=== PATIENT | female | born 1975 | race Caucasian/White ===

== ENCOUNTER 2023-07-06 15:03 | Emergency (ER) | payer SELFPAY ==
[~2023-07-06] VITALS: Ht 170.2 cm; Wt 158.9 kg
[~2023-07-06 15:03] MED LIST: ALBU6.7H14 INH; CARI350T PO; CLOT15CR9 TOP; HYDR-4383 PO; NORCO10T PO; PER10325T PO
[2023-07-06 15:29] VITALS: BP 183/102; PULSE 87; TEMP 96.4; O2SAT 94
[2023-07-06 15:37] LABS: BASOPHILS # (AUTO) 0.1 X10'3 (0-0.2); EOSINOPHILS # (AUTO) 0.2 X10'3 (0-0.9); EOSINOPHILS % (AUTO) 2.1 % (0-6); HEMATOCRIT 39.1 % (35.0-45.0); HEMOGLOBIN 13.5 g/dl (12.0-16.0); LYMPHOCYTES # (AUTO) 2.5 X10'3 (1.1-4.8); LYMPHOCYTES % (AUTO) 23.9 % (21-51); MEAN CORPUSCULAR HEMOGLOBIN 29.6 PG (27.0-31.0); MEAN CORPUSCULAR HGB CONC 34.5 g/dL (33.0-36.5); MEAN CORPUSCULAR VOLUME 85.9 FL (78-98); MEAN PLATELET VOLUME 7.2 FL (7.4-10.4); MONOCYTES # (AUTO) 0.7 X10'3 (0-0.9); MONOCYTES % (AUTO) 6.6 % (2-12); NEUTROPHILS % (AUTO) 66.4 % (42-75); PLATELET COUNT 262 X10'3 (140-440); RED BLOOD COUNT 4.55 X10'6 (4.20-5.60); RED CELL DISTRIBUTION WIDTH 13.6 % (11.5-14.5); WHITE BLOOD COUNT 10.5 X10'3 (4.5-11.0)
[2023-07-06 15:44] LABS: ALANINE AMINOTRANSFERASE 30 U/L (12-78); ALBUMIN 3.2 G/DL (3.4-5.0); ALBUMIN/GLOBULIN RATIO 0.8 (1.1-1.5); ALKALINE PHOSPHATASE 85 IU/L (46-116); ANION GAP 5 (8-16); ASPARTATE AMINO TRANSFERASE 23 U/L (10-37); BILIRUBIN,TOTAL 0.5 MG/DL (0.1-1.0); BLOOD UREA NITROGEN 12 MG/DL (7-18); BUN/CREATININE RATIO 14.1 (10.0-20.0); CALCIUM 9.2 MG/DL (8.5-10.1); CHLORIDE 101 MMOL/L (99-107); CREATININE 0.85 MG/DL (0.40-0.90); GLUCOSE 253 MG/DL (70-104); POTASSIUM 4.2 MMOL/L (3.5-5.1); PRO BRAIN NATRIURETIC PEPTIDE 58 PG/ML (0-125); SODIUM 135 MMOL/L (135-145); TOTAL CARBON DIOXIDE 28.6 MMOL/L (24-32); TOTAL PROTEIN 7.3 G/DL (6.4-8.2); eCRCL 80 ML/MIN; eGFR 72 ML/MIN
[2023-07-06 16:17] VITALS: RESP 16
[2023-07-06] MEDS ORDERED: BENZ-38 PO (18:54)
== END 2023-07-06 19:09 | disposition home or self-care (01) ==
LOC: ER 15:03
DX: J20.9 Acute bronchitis, unspecified (principal); Z20.822 Contact with and (suspected) exposure to COVID-19; I10 Essential (primary) hypertension; J45.909 Unspecified asthma, uncomplicated; G89.29 Other chronic pain; M54.9 Dorsalgia, unspecified; Z88.2 Allergy status to sulfonamides; Z88.5 Allergy status to narcotic agent; Z79.899 Other long term (current) drug therapy
CPT/HCPCS: 36415; 71045; 80053; 83880; 84484; 85025; 87502; 87503; 87811; 93005; 99285

== ENCOUNTER 2023-11-03 17:58 | Inpatient (IN) | payer BC ==
[~2023-11-03] VITALS: Ht 170.2 cm; Wt 153.7 kg
[2023-11-03 19:19] LABS: BASOPHILS # (AUTO) 0.1 X10'3 (0-0.2); EOSINOPHILS # (AUTO) 0.1 X10'3 (0-0.9); EOSINOPHILS % (AUTO) 0.6 % (0-6); HEMATOCRIT 44.7 % (35.0-45.0); LYMPHOCYTES # (AUTO) 2.3 X10'3 (1.1-4.8); MEAN CORPUSCULAR HEMOGLOBIN 28.6 PG (27.0-31.0); MEAN CORPUSCULAR HGB CONC 33.5 g/dL (33.0-36.5); MEAN CORPUSCULAR VOLUME 85.4 FL (78-98); MEAN PLATELET VOLUME 7.2 FL (7.4-10.4); MONOCYTES # (AUTO) 0.8 X10'3 (0-0.9); MONOCYTES % (AUTO) 6.7 % (2-12); NEUTROPHILS # (AUTO) 9.3 X10'3 (1.8-7.7); NEUTROPHILS % (AUTO) 73.7 % (42-75); PLATELET COUNT 390 X10'3 (140-440); RED BLOOD COUNT 5.23 X10'6 (4.20-5.60); RED CELL DISTRIBUTION WIDTH 14.3 % (11.5-14.5); WHITE BLOOD COUNT 12.6 X10'3 (4.5-11.0)
[2023-11-03 19:33] LABS: ALANINE AMINOTRANSFERASE 102 U/L (12-78); ALBUMIN 3.7 G/DL (3.4-5.0); ALBUMIN/GLOBULIN RATIO 0.9 (1.1-1.5); ALKALINE PHOSPHATASE 89 IU/L (46-116); ANION GAP 11 (8-16); ASPARTATE AMINO TRANSFERASE 107 U/L (10-37); BLOOD UREA NITROGEN 13 MG/DL (7-18); BUN/CREATININE RATIO 12.4 (10.0-20.0); CALCIUM 9.1 MG/DL (8.5-10.1); CHLORIDE 100 MMOL/L (99-107); CREATININE 1.05 MG/DL (0.40-0.90); GLUCOSE 304 MG/DL (70-104); LIPASE 63 U/L (16-77); POTASSIUM 4.6 MMOL/L (3.5-5.1); SODIUM 140 MMOL/L (135-145); TOTAL PROTEIN 7.9 G/DL (6.4-8.2); eCRCL 64 ML/MIN; eGFR 56 ML/MIN
[2023-11-03] MEDS ORDERED: ketorolac tromethamine 15mg/ml inj. IM ONE (19:40)
[2023-11-03 19:56] LABS: BILIRUBIN,TOTAL 1.8 MG/DL (0.1-1.0)
[2023-11-03] MEDS: HYDROcodone/acetaminophen 5mg/325mg tablet PO ONE (20:00)
[2023-11-03] MEDS: ketorolac trometh inj. 60 MG/2 ML VIAL IM ONE (20:01)
[2023-11-03] MEDS: ondansetron/PF 4mg/2ml inj IV ONE ×2 (20:01→22:07)
[2023-11-03 21:35] LABS: BILIRUBIN,URINE MODERATE (Neg); CLARITY,URINE CLOUDY (Clear); COLOR,URINE YELLOW (Yellow); GLUCOSE, URINE 500 mg/dl (Neg); KETONES,URINE TRACE mg/dl (Neg); LEUKOCYTE ESTERASE ,URINE NEGATIVE (Neg); NITRITES, URINE NEGATIVE (Neg); OCCULT BLOOD,URINE NEGATIVE (Neg); PROTEIN,URINE 30 mg/dl (Neg)
[2023-11-03 21:37] LABS: URINE HCG NEGATIVE (NEG)
[2023-11-03 21:44] LABS: UA COLLECTION TYPE CLN CATCH MIDSTREAM
[2023-11-03 21:45] LABS: MUCUS STRANDS MODERATE /LPF (Neg); SQUAMOUS EPITHELIAL CELL,UR MANY /LPF (FEW)
[2023-11-03 21:46] LABS: BACTERIA,URINE FEW /HPF (Neg); RBC,URINE 0-2 /HPF (0-2); WBC,URINE 0-4 /HPF (0-4)
[2023-11-03 22:03] LABS: URINE AMPHETAMINE SCREEN NEGATIVE (Neg); URINE BARBITUATE SCREEN NEGATIVE (Neg); URINE BENZODIAZEPINES SCREEN NEGATIVE (Neg); URINE CANNABINOID SCREEN POSITIVE (Neg); URINE COCAINE SCREEN NEGATIVE (Neg); URINE METHADONE SCREEN NEGATIVE (Neg); URINE OPIATE SCREEN NEGATIVE (Neg); URINE PHENCYCLIDINE SCREEN NEGATIVE (Neg)
[2023-11-03] MEDS: piperacillin/tazo 3.375gm/50ml 50 ML IV SCH (22:07)
[2023-11-03] MEDS: normal saline 1000ml 1,000 ML IV ONE (22:08)
[2023-11-03] MEDS: morphine 4 MG/ML inj SYRINge IV ONE (22:08)
[2023-11-03] MEDS ORDERED: ondansetron/PF 4mg/2ml inj IV PRN (23:35)
[2023-11-03] MEDS ORDERED: potassium Cl 20 mEq SR tablet PO PRN ×2 (23:35)
[2023-11-03] MEDS ORDERED: magnesium Cl slow-release 64mg tablet PO PRN (23:35)
[2023-11-03] MEDS ORDERED: magnesium 4gm in 100ml NS 100 ML IV PRN (23:35)
[2023-11-03] MEDS ORDERED: mag hydrox/Alum hydrox/simeth 30ml oral suspension PO PRN (23:35)
[2023-11-03] MEDS ORDERED: HYDROcodone/acetaminophen 5mg/325mg tablet PO PRN (23:35)
[2023-11-03] MEDS: normal saline 1000ml 1,000 ML IV SCH (23:35)
[2023-11-03] MEDS ORDERED: potassium Cl 40MEQ/1/2NS 520ml 520 ML IV PRN (23:35)
[2023-11-04] VITALS (21 sets, daily range): BP systolic 134–161; BP diastolic 77–105; PULSE 66–98; RESP 12–20; TEMP 96.8–98.9; O2SAT 92–98
[2023-11-04] MEDS ORDERED: piperacillin/tazo 4.5gm/100ml 100 ML IV SCH
[2023-11-04] MEDS: morphine 2 MG/ML inj. syringe IV PRN ×2 (02:55→18:14)
[2023-11-04] MEDS ORDERED: MULT-1085 PO (03:23)
[2023-11-04 04:44] LABS: BASOPHILS # (AUTO) 0.1 X10'3 (0-0.2); BASOPHILS % (AUTO) 0.9 % (0-1); EOSINOPHILS # (AUTO) 0.2 X10'3 (0-0.9); HEMATOCRIT 40.8 % (35.0-45.0); HEMOGLOBIN 13.5 g/dl (12.0-16.0); LYMPHOCYTES # (AUTO) 2.2 X10'3 (1.1-4.8); LYMPHOCYTES % (AUTO) 29.3 % (21-51); MEAN CORPUSCULAR HEMOGLOBIN 28.5 PG (27.0-31.0); MEAN CORPUSCULAR HGB CONC 33.1 g/dL (33.0-36.5); MONOCYTES # (AUTO) 0.7 X10'3 (0-0.9); MONOCYTES % (AUTO) 8.8 % (2-12); NEUTROPHILS # (AUTO) 4.4 X10'3 (1.8-7.7); PLATELET COUNT 303 X10'3 (140-440); RED BLOOD COUNT 4.74 X10'6 (4.20-5.60); WHITE BLOOD COUNT 7.5 X10'3 (4.5-11.0)
[2023-11-04 04:54] LABS: APTT 27 SECONDS (22-32); PROTHROMBIN TIME 10.9 SECONDS (9.0-12.0)
[2023-11-04 04:56] LABS: ALANINE AMINOTRANSFERASE 161 U/L (12-78); ALBUMIN 3.3 G/DL (3.4-5.0); ALBUMIN/GLOBULIN RATIO 0.9 (1.1-1.5); ALKALINE PHOSPHATASE 78 IU/L (46-116); ANION GAP 8 (8-16); ASPARTATE AMINO TRANSFERASE 138 U/L (10-37); BILIRUBIN,TOTAL 1.2 MG/DL (0.1-1.0); BLOOD UREA NITROGEN 17 MG/DL (7-18); BUN/CREATININE RATIO 13.5 (10.0-20.0); CALCIUM 8.3 MG/DL (8.5-10.1); CHLORIDE 103 MMOL/L (99-107); CREATININE 1.26 MG/DL (0.40-0.90); GLUCOSE 207 MG/DL (70-104); POTASSIUM 4.2 MMOL/L (3.5-5.1); SODIUM 142 MMOL/L (135-145); TOTAL CARBON DIOXIDE 31.5 MMOL/L (24-32); TOTAL PROTEIN 6.8 G/DL (6.4-8.2); eCRCL 54 ML/MIN; eGFR 46 ML/MIN
[2023-11-04 04:59] LABS: HEMOGLOBIN A1C 10.5 % (4.5-6.2)
[2023-11-04] MEDS: piperacillin/tazo 4.5gm/100ml 100 ML IV SCH (07:52)
[2023-11-04] MEDS ORDERED: dextrose 50%-water 50ml dispensing syringe IV PRN ×2 (10:25)
[2023-11-04] MEDS ORDERED: glucagon, human recombinant 1mg kit SUBCUT PRN (10:25)
[2023-11-04] MEDS ORDERED: DEXTROSE 15 GM of carb/4 tabs (each vial/BOTTLE has 4 tablets) PO PRN ×2 (10:25)
[2023-11-04] MEDS ORDERED: INDOCYANINE GREEN 25 MG/10 ML VIAL IV ONE (13:00)
[2023-11-04] MEDS ORDERED: morphine 4 MG/ML inj SYRINge IV PRN (13:20)
[2023-11-04] MEDS: ringers solution, lacted 1,000 ML IV SCH (13:20)
[2023-11-04] MEDS ORDERED: ondansetron/PF 4mg/2ml inj IV PRN (13:20)
[2023-11-04] MEDS ORDERED: fentaNYL/PF 50MCG/1 ML 2ML syringe IV PRN ×2 (13:20)
[2023-11-04] MEDS ORDERED: hydrALAZINE 20mg/ml inj. IV PRN (13:20)
[2023-11-04] MEDS ORDERED: labetalol 20mg/4ml (5mg/ml) syringe IV PRN (13:20)
[2023-11-04] MEDS: INDOCYANINE GREEN 25 MG/10 ML VIAL IV ONE (14:02)
[2023-11-04] MEDS ORDERED: LIDOcaine 1% 30ml preserv. free vial ONE ×2 (15:02→15:35)
[2023-11-04] MEDS ORDERED: BUPIVAcaine 2.5mg/ml inj 50ml vial (contains preservative) ONE (15:02)
[2023-11-04] MEDS ORDERED: MIDAZolam 1 MG/ML 5ML VIAL ONE (15:18)
[2023-11-04] MEDS ORDERED: fentaNYL/PF 50MCG/1 ML 2ML syringe ONE ×2 (15:18→16:10)
[2023-11-04] MEDS ORDERED: rocuronium 10mg/ml inj IV ONE (15:26)
[2023-11-04] MEDS ORDERED: propofol inj 20 ML IV ONE (15:26)
[2023-11-04] MEDS ORDERED: LIDOcaine 1%/PF 5ML 10 MG/ML VIAL ONE (15:27)
[2023-11-04] MEDS ORDERED: sugammadex 200mg/2ml injection IV ONE (15:36)
[2023-11-04] MEDS: BUPIVAcaine/PF 2.5mg/ml (0.25%) 10ml vial ONE (16:28)
[2023-11-04] MEDS: LIDOcaine 1% 30ml preserv. free vial IJ ONE (16:29)
[2023-11-04] MEDS: normal saline 1000ml 1,000 ML IV SCH (17:20)
[2023-11-04] MEDS ORDERED: naloxone 0.4 mg/ml inj IV PRN (17:20)
[2023-11-04] MEDS: HYDROmorph/NS 0.2 mg/ml PCA 100 ML IV SCH (18:05)
[2023-11-04] MEDS: insulin Lispro (HumaLOG) vial - multi-dose SQ SCH (22:32)
[2023-11-04] MEDS: insulin glargine (Lantus) pen - multi-dose SQ SCH (22:33)
[2023-11-05] VITALS (9 sets, daily range): BP systolic 110–154; BP diastolic 53–96; PULSE 62–97; RESP 12–20; TEMP 97.8–98.1; O2SAT 94–98
[2023-11-05 05:55] LABS: ALANINE AMINOTRANSFERASE 234 U/L (12-78); ALBUMIN/GLOBULIN RATIO 0.8 (1.1-1.5); ALKALINE PHOSPHATASE 81 IU/L (46-116); ANION GAP 7 (8-16); ASPARTATE AMINO TRANSFERASE 150 U/L (10-37); BASOPHILS % (AUTO) 0.3 % (0-1); BLOOD UREA NITROGEN 13 MG/DL (7-18); BUN/CREATININE RATIO 14.1 (10.0-20.0); CHLORIDE 102 MMOL/L (99-107); CREATININE 0.92 MG/DL (0.40-0.90); EOSINOPHILS % (AUTO) 0 % (0-6); GLUCOSE 270 MG/DL (70-104); HEMATOCRIT 37.5 % (35.0-45.0); HEMOGLOBIN 12.7 g/dl (12.0-16.0); LYMPHOCYTES # (AUTO) 1.1 X10'3 (1.1-4.8); LYMPHOCYTES % (AUTO) 12.4 % (21-51); MEAN CORPUSCULAR HEMOGLOBIN 29.6 PG (27.0-31.0); MEAN PLATELET VOLUME 7.4 FL (7.4-10.4); MONOCYTES # (AUTO) 0.6 X10'3 (0-0.9); MONOCYTES % (AUTO) 6.6 % (2-12); NEUTROPHILS # (AUTO) 7.3 X10'3 (1.8-7.7); NEUTROPHILS % (AUTO) 80.7 % (42-75); PLATELET COUNT 273 X10'3 (140-440); POTASSIUM 4.5 MMOL/L (3.5-5.1); RED CELL DISTRIBUTION WIDTH 14.3 % (11.5-14.5); SODIUM 138 MMOL/L (135-145); TOTAL CARBON DIOXIDE 28.7 MMOL/L (24-32); TOTAL PROTEIN 6.8 G/DL (6.4-8.2); WHITE BLOOD COUNT 9.1 X10'3 (4.5-11.0); eCRCL 74 ML/MIN; eGFR 65 ML/MIN
[2023-11-05] MEDS: enoxaparin 40mg/0.4ml syringe SQ SCH (08:54)
[2023-11-06] VITALS (8 sets, daily range): BP systolic 112–149; BP diastolic 70–91; PULSE 75–80; RESP 12–18; TEMP 97.7–98.4; O2SAT 92–98
[2023-11-06 08:00] LABS: BASOPHILS # (AUTO) 0.1 X10'3 (0-0.2); BASOPHILS % (AUTO) 1.1 % (0-1); EOSINOPHILS # (AUTO) 0.2 X10'3 (0-0.9); EOSINOPHILS % (AUTO) 2.1 % (0-6); HEMATOCRIT 37.3 % (35.0-45.0); HEMOGLOBIN 12.6 g/dl (12.0-16.0); LYMPHOCYTES # (AUTO) 2.3 X10'3 (1.1-4.8); LYMPHOCYTES % (AUTO) 26.4 % (21-51); MEAN CORPUSCULAR HEMOGLOBIN 29.4 PG (27.0-31.0); MEAN CORPUSCULAR HGB CONC 33.7 g/dL (33.0-36.5); MEAN CORPUSCULAR VOLUME 87.3 FL (78-98); MEAN PLATELET VOLUME 7.3 FL (7.4-10.4); MONOCYTES # (AUTO) 0.7 X10'3 (0-0.9); MONOCYTES % (AUTO) 7.8 % (2-12); NEUTROPHILS # (AUTO) 5.5 X10'3 (1.8-7.7); NEUTROPHILS % (AUTO) 62.6 % (42-75); PLATELET COUNT 259 X10'3 (140-440); RED BLOOD COUNT 4.27 X10'6 (4.20-5.60); RED CELL DISTRIBUTION WIDTH 14.2 % (11.5-14.5); WHITE BLOOD COUNT 8.8 X10'3 (4.5-11.0)
[2023-11-06 08:44] LABS: ALANINE AMINOTRANSFERASE 203 U/L (12-78); ALBUMIN 2.9 G/DL (3.4-5.0); ALBUMIN/GLOBULIN RATIO 0.8 (1.1-1.5); ALKALINE PHOSPHATASE 82 IU/L (46-116); ANION GAP 8 (8-16); ASPARTATE AMINO TRANSFERASE 97 U/L (10-37); BILIRUBIN,TOTAL 1.1 MG/DL (0.1-1.0); BLOOD UREA NITROGEN 10 MG/DL (7-18); BUN/CREATININE RATIO 13.3 (10.0-20.0); CALCIUM 7.8 MG/DL (8.5-10.1); CHLORIDE 102 MMOL/L (99-107); CHOL/HDL RATIO 4.6 (0.00-4.99); CHOLESTEROL 173 MG/DL (0-200); CREATININE 0.75 MG/DL (0.40-0.90); GLUCOSE 165 MG/DL (70-104); HDL CHOLESTEROL 38 MG/DL (35-60); LDL CHOLESTEROL 87 MG/DL (50-100); POTASSIUM 3.7 MMOL/L (3.5-5.1); SODIUM 137 MMOL/L (135-145); THYROID STIMULATING HORMONE 4.34 ulU/ml (0.34-4.50); TOTAL CARBON DIOXIDE 26.8 MMOL/L (24-32); TOTAL PROTEIN 6.6 G/DL (6.4-8.2); TRIGLYCERIDES 236 MG/DL (20-135); eCRCL 90 ML/MIN; eGFR 83 ML/MIN
[2023-11-06] MEDS: PCA WASTE DOCUMENTATION 1 MG ML MC SCH (10:58)
[2023-11-07] MEDS ORDERED: acetaminophen 325mg tablet PO PRN (04:20)
[2023-11-07] MEDS: ketorolac tromethamine 15mg/ml inj. IV PRN (04:42)
[2023-11-07] MEDS: acetaminophen 325mg tablet PO PRN (04:42)
[2023-11-07 06:00] VITALS: BP 113/69; PULSE 74; RESP 16; TEMP 97.8; O2SAT 93
[2023-11-07 06:00] LABS: BASOPHILS % (AUTO) 0.6 % (0-1); EOSINOPHILS # (AUTO) 0.1 X10'3 (0-0.9); EOSINOPHILS % (AUTO) 2.1 % (0-6); HEMATOCRIT 34.5 % (35.0-45.0); HEMOGLOBIN 11.7 g/dl (12.0-16.0); LYMPHOCYTES # (AUTO) 1.7 X10'3 (1.1-4.8); LYMPHOCYTES % (AUTO) 25.6 % (21-51); MEAN CORPUSCULAR HEMOGLOBIN 29.6 PG (27.0-31.0); MEAN CORPUSCULAR HGB CONC 34.1 g/dL (33.0-36.5); MEAN PLATELET VOLUME 7.5 FL (7.4-10.4); MONOCYTES # (AUTO) 0.7 X10'3 (0-0.9); MONOCYTES % (AUTO) 9.9 % (2-12); NEUTROPHILS # (AUTO) 4.1 X10'3 (1.8-7.7); NEUTROPHILS % (AUTO) 61.8 % (42-75); PLATELET COUNT 226 X10'3 (140-440); RED BLOOD COUNT 3.96 X10'6 (4.20-5.60); RED CELL DISTRIBUTION WIDTH 13.8 % (11.5-14.5); WHITE BLOOD COUNT 6.7 X10'3 (4.5-11.0)
[2023-11-07 06:17] LABS: ALANINE AMINOTRANSFERASE 164 U/L (12-78); ALBUMIN 2.6 G/DL (3.4-5.0); ALBUMIN/GLOBULIN RATIO 0.7 (1.1-1.5); ALKALINE PHOSPHATASE 83 IU/L (46-116); ANION GAP 7 (8-16); ASPARTATE AMINO TRANSFERASE 84 U/L (10-37); BILIRUBIN,TOTAL 0.9 MG/DL (0.1-1.0); BLOOD UREA NITROGEN 7 MG/DL (7-18); BUN/CREATININE RATIO 9.5 (10.0-20.0); CALCIUM 8.2 MG/DL (8.5-10.1); CHLORIDE 105 MMOL/L (99-107); CREATININE 0.74 MG/DL (0.40-0.90); GLUCOSE 155 MG/DL (70-104); POTASSIUM 3.6 MMOL/L (3.5-5.1); SODIUM 141 MMOL/L (135-145); TOTAL CARBON DIOXIDE 29.3 MMOL/L (24-32); TOTAL PROTEIN 6.1 G/DL (6.4-8.2); eCRCL 91 ML/MIN; eGFR 84 ML/MIN
[2023-11-07 10:00] VITALS: BP 124/59; PULSE 70; RESP 15; TEMP 97.7; O2SAT 97
[2023-11-07] MEDS: oxyCODONE/APAP 5-325mg tablet PO PRN (12:32)
[2023-11-07] MEDS: magnesium hydroxide 30ml (MOM) UD suspension PO PRN (14:36)
[2023-11-07 18:00] VITALS: BP 155/97; PULSE 74; RESP 17; TEMP 97.6; O2SAT 96
[2023-11-07 20:00] VITALS: RESP 17; O2SAT 96
[2023-11-07 22:00] VITALS: BP 123/69; PULSE 75; RESP 18; TEMP 97.6; O2SAT 94
[2023-11-08 05:50] LABS: ALANINE AMINOTRANSFERASE 133 U/L (12-78); ALBUMIN 2.6 G/DL (3.4-5.0); ALBUMIN/GLOBULIN RATIO 0.8 (1.1-1.5); ALKALINE PHOSPHATASE 82 IU/L (46-116); ANION GAP 6 (8-16); ASPARTATE AMINO TRANSFERASE 53 U/L (10-37); BILIRUBIN,TOTAL 0.8 MG/DL (0.1-1.0); BLOOD UREA NITROGEN 6 MG/DL (7-18); BUN/CREATININE RATIO 8.8 (10.0-20.0); CALCIUM 8.2 MG/DL (8.5-10.1); CHLORIDE 104 MMOL/L (99-107); CREATININE 0.68 MG/DL (0.40-0.90); GLUCOSE 125 MG/DL (70-104); POTASSIUM 3.5 MMOL/L (3.5-5.1); SODIUM 142 MMOL/L (135-145); TOTAL CARBON DIOXIDE 31.6 MMOL/L (24-32); eCRCL 99 ML/MIN; eGFR > 90 ML/MIN
[2023-11-08 05:51] LABS: BASOPHILS % (AUTO) 0.4 % (0-1); EOSINOPHILS # (AUTO) 0.1 X10'3 (0-0.9); HEMATOCRIT 36.4 % (35.0-45.0); HEMOGLOBIN 12.2 g/dl (12.0-16.0); LYMPHOCYTES # (AUTO) 1.6 X10'3 (1.1-4.8); MEAN CORPUSCULAR HEMOGLOBIN 29.2 PG (27.0-31.0); MEAN CORPUSCULAR HGB CONC 33.5 g/dL (33.0-36.5); MEAN PLATELET VOLUME 7.5 FL (7.4-10.4); MONOCYTES # (AUTO) 0.6 X10'3 (0-0.9); MONOCYTES % (AUTO) 9.2 % (2-12); NEUTROPHILS # (AUTO) 4.5 X10'3 (1.8-7.7); NEUTROPHILS % (AUTO) 65.4 % (42-75); PLATELET COUNT 229 X10'3 (140-440); RED BLOOD COUNT 4.19 X10'6 (4.20-5.60); RED CELL DISTRIBUTION WIDTH 14.1 % (11.5-14.5); WHITE BLOOD COUNT 6.9 X10'3 (4.5-11.0)
[2023-11-08 06:00] VITALS: BP 123/76; PULSE 79; RESP 20; TEMP 98.3; O2SAT 95
[2023-11-08] MEDS: pneumococcal 23-VAL P-sac vacc 25 mcg/0.5ml vial IMVAC ONE (07:49)
[2023-11-08 07:57] VITALS: RESP 16
[2023-11-08 10:00] VITALS: BP 116/59; PULSE 68; RESP 14; TEMP 97.6; O2SAT 97
[2023-11-08] MEDS ORDERED: METF-438 PO (12:01)
[2023-11-08] MEDS ORDERED: DULA0.75 SQ ×2 (12:09→12:11)
[2023-11-08] MEDS ORDERED: METF-900 PO (14:34)
[2023-11-08] MEDS ORDERED: DULA0.75 SUBCUT (14:34)
[2023-11-08 16:15] VITALS: RESP 16
[2024-01-04] MEDS ORDERED: dexamethasone sod phosphate 10mg/ml inj ONE (15:15)
[2024-01-04] MEDS ORDERED: ondansetron/PF 4mg/2ml inj ONE (15:15)
[2024-01-04] MEDS ORDERED: desflurane 240ml liquid inh. IH ONE (15:15)
== END 2023-11-08 16:20 | disposition home or self-care (01) | DRG 415 ==
LOC: ER 17:59 → ED HOLD 23:35 → EDBEDREQ 11-04 02:22 → SUR 3N 11-04 02:46
PROVIDERS: ADMIT Internal Medicine Critical Care Medicine; ATTEND Family Medicine
PROC: 0FJ44ZZ Inspection of Gallbladder, Percutaneous Endoscopic Approach (ICD-10-PCS; 2023-11-04)
PROC: 0FT40ZZ Resection of Gallbladder, Open Approach (ICD-10-PCS; principal; 2023-11-04 15:15)
DX: K80.62 Calculus of gallbladder and bile duct with acute cholecystitis without obstruction (principal); Z68.43 Body mass index [BMI] 50.0-59.9, adult; G89.29 Other chronic pain; I10 Essential (primary) hypertension; E11.9 Type 2 diabetes mellitus without complications; Z20.822 Contact with and (suspected) exposure to COVID-19; J45.909 Unspecified asthma, uncomplicated; K43.9 Ventral hernia without obstruction or gangrene; K42.9 Umbilical hernia without obstruction or gangrene; N83.8 Other noninflammatory disorders of ovary, fallopian tube and broad ligament; K76.0 Fatty (change of) liver, not elsewhere classified; E66.01 Morbid (severe) obesity due to excess calories; Z53.31 Laparoscopic surgical procedure converted to open procedure; Z82.49 Family history of ischemic heart disease and other diseases of the circulatory system; Z98.891 History of uterine scar from previous surgery; Z88.2 Allergy status to sulfonamides; Z88.8 Allergy status to other drugs, medicaments and biological substances; Z79.899 Other long term (current) drug therapy; Z98.51 Tubal ligation status
CPT/HCPCS: 96365; 96375; 99291; Z7506; Z7508; 36415; 71045; 74176; 76700; 80053; 80061; 80305; 81001; 81025; 82948; 83036; 83690; 84443; 84484; 85025; 85610; 85730; 87081; 87811; 90732; 93005; 97161; 97530; A4215; A4615; A4618; A6250; A6258; A7000; G0378; J1100; J1170; J1650; J1815; J1885; J2250; J2270; J2405; J2543; J2704; J3010; J3490; J7030; J7120

== ENCOUNTER 2025-06-26 16:13 | Emergency (ER) | payer OTHER, BC ==
[~2025-06-26] VITALS: Ht 167.6 cm; Wt 146.0 kg
[~2025-06-26 16:13] MED LIST changes: -ALBU6.7H14 INH; -CARI350T PO; -CLOT15CR9 TOP; +DULA0.75 SUBCUT; -HYDR-4383 PO; -NORCO10T PO; -PER10325T PO
[2025-06-26] MEDS: HYDROcodone/acetaminophen 10/325mg tab PO ONE (16:37)
[2025-06-26] MEDS: ibuprofen tablet 400 MG TABLET PO ONE (16:37)
[2025-06-26] MEDS ORDERED: IBUP-1986 PO (17:11)
[2025-06-26] MEDS ORDERED: HYDR-3972 PO (17:11)
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
[2025-06-26 17:22] VITALS: BP 140/89; PULSE 77; RESP 18; TEMP 98; O2SAT 95
== END 2025-06-26 17:27 | disposition home or self-care (01) ==
LOC: ER 16:14
DX: R51.9 Headache, unspecified (principal); I10 Essential (primary) hypertension; J45.909 Unspecified asthma, uncomplicated; F12.90 Cannabis use, unspecified, uncomplicated; F10.90 Alcohol use, unspecified, uncomplicated; Z88.2 Allergy status to sulfonamides; Z90.89 Acquired absence of other organs; Z98.51 Tubal ligation status; V43.52XA Car driver injured in collision with other type car in traffic accident, initial encounter; Y92.410 Unspecified street and highway as the place of occurrence of the external cause; Y93.89 Activity, other specified; Y99.8 Other external cause status; Y90.9 Presence of alcohol in blood, level not specified
CPT/HCPCS: 99283